=== PATIENT | female | born 1940 ===

== ENCOUNTER 2017-03-21 14:50 | Outpatient (CLI) | payer MEDICARE ==
--- NOTE | 2017-03-21 16:23 | Mammography Report ---
BONE DEXA:03/21/17 14:50:00 CLINICAL: Postmenopausal. COMPARISON: None. TECHNIQUE: Two site bone DEXA performed on an Hologic scanner. FINDINGS: The average BMD of the lumbar spine L1-L4 is 0.814g/cm squared with a T-score of -3.1 and a Z-score of -0.3. The average BMD of the left hip is 0.746g/cm squared with a T-score of -1.8 and a Z-score of -0.4. The femoral neck BMD is 0.595g/cm squared with a T score of -2.5 and a Z score of -0.9 IMPRESSION: WHO classification: Osteoporosis with I. fracture risk based on the spine and left hip measurements. RECOMMENDATION: Clinical correlation and routine screening. DEFINITIONS: BMD = Bone Mineral Density T-score = BMD related to mean peak bone mass of young adult (mean expressed in Standard Deviation) Z-score = Age matched BMD expressed in SD World Health Organization (WHO) Diagnostic Criteria Normal T-score > -1 SD Osteopenia T-score between -1 and -2.4 SD Osteoporosis T-score -2.5 SD or below NOTE: BMD is not the only risk factor for fracture; also consider factors such as the patient's age, risk of falling, previous osteoporotic fracture, family history of osteoporotic fractures, current smoker, and low body weight. Z-scores are not calculated if >80 years of age.
--- NOTE | 2017-03-21 16:24 | Mammography Report ---
BILATERAL DIGITAL SCREENING MAMMOGRAM with CAD: 03/21/17 14:50:00 CLINICAL: Routine screening. COMPARISON:None available. She doesn't recall where she previously had a mammogram. FINDINGS: The breasts are almost entirely fatty. No mass, architectural distortion or suspicious calcifications. IMPRESSION: No mammographic evidence of malignancy. BI-RADS CATEGORY: 2 -- Benign RECOMMENDATION: Routine mammographic screening in one year. COMMENT: Patient follow-up letters are generated by our [employer] application.
== END 2017-03-21 14:51 | disposition home or self-care (01) ==
LOC: SPVWC 14:50
PROVIDERS: ATTEND Family Medicine
DX: Z12.31 Encounter for screening mammogram for malignant neoplasm of breast (principal); M81.0 Age-related osteoporosis without current pathological fracture; Z78.0 Asymptomatic menopausal state
CPT/HCPCS: 77080; G0202; 77067